=== PATIENT | male | born 1970 | race Caucasian/White ===

== ENCOUNTER 2019-01-19 20:13 | Inpatient (IN) | payer MEDICAID ==
[~2019-01-19] VITALS: Ht 182.9 cm; Wt 115.1 kg
[~2019-01-19 20:13] MED LIST: ASPI81TA45 PO; DOCU-131 PO; GABA-827 PO; INSU100I11 SQ-INSULIN; INSU100I13 SQ-INSULIN; LISI-170 PO; PANT40TA5 PO; SENN-177 PO
[2019-01-19] MEDS ORDERED: SODIUM CHLORIDE 0.9% 1,000 ML IV SCH (23:17)
[2019-01-19] MEDS ORDERED: VANCOMYCIN PER PHARMACY MC PRN (23:30)
[2019-01-19] MEDS ORDERED: PLEASE ENTER HEIGHT AND WEIGHT MC SCH (23:30)
[2019-01-19] MEDS ORDERED: hydrALAzine 20 MG/ML, 1ML IVPush PRN (23:30)
[2019-01-19 23:42] VITALS: BP 101/61
[2019-01-20] MEDS ORDERED: FURO-93 PO (00:03)
[2019-01-20] MEDS ORDERED: HYDR-3245 PO (00:07)
[2019-01-20] MEDS ORDERED: IBUP-1902 PO (00:08)
[2019-01-20] MEDS ORDERED: POTA10TA11 PO (00:13)
[2019-01-20] MEDS ORDERED: INSU200I SQ (00:20)
[2019-01-20] MEDS ORDERED: SIME80TA16 PO (00:23)
[2019-01-20] MEDS ORDERED: PHARMACOKINETIC MONITORING MC PRN (00:30)
[2019-01-20] MEDS: AMPICILLIN/SULBACTAM 3 GM in SODIUM CHLORIDE 0.9% 100 ML IV SCH ×4 (00:33→18:18)
[2019-01-20] MEDS: ENOXAPARIN 40 MG/0.4 ML SQ SCH (00:33)
[2019-01-20] MEDS: HYDROcodone/APAP 10/325 MG TABLET PO PRN ×4 (00:35→21:27)
[2019-01-20] MEDS ORDERED: LANS30CA60 PO (00:36)
[2019-01-20] MEDS ORDERED: BISA10SU54 PR (00:39)
[2019-01-20] MEDS ORDERED: PARO10TA3 PO (00:42)
[2019-01-20] MEDS ORDERED: MAGN400O7 PO (00:46)
[2019-01-20 00:48] VITALS: BP 110/63
[2019-01-20] MEDS ORDERED: VANCOMYCIN 2,000 MG in SODIUM CHLORIDE 0.9% 500 ML IV SCH (01:00)
[2019-01-20 05:45] LABS: BASOPHILS # (AUTO) 0.02 x10^3/uL (0-0.1); BASOPHILS % (AUTO) 0 % (0-1); EOSINOPHILS # (AUTO) 0.13 x10^3/uL (0-0.4); EOSINOPHILS % (AUTO) 1 % (1-7); LYMPHOCYTES % (AUTO) 10 % (22-44); MD NO; MEAN CORPUSCULAR HEMOGLOBIN 25.7 pg (27.5-34.5); MEAN CORPUSCULAR HGB CONC 31.9 g/dL (33.2-36.2); MEAN CORPUSCULAR VOLUME 80.3 fL (81-97); MEAN PLATELET VOLUME 6.9 fL (7.4-10.4); MONOCYTES # (AUTO) 0.72 x10^3/uL (0.2-0.8); MONOCYTES % (AUTO) 8 % (2-9); NEUTROPHILS % (AUTO) 80 % (42-75); PLATELET COUNT 408 x10^3/uL (130-400); RED BLOOD COUNT 3.38 x10^6/uL (4.38-5.82); RED CELL DISTRIBUTION WIDTH 17.3 % (9.4-14.8)
[2019-01-20 05:53] LABS: ALBUMIN 2.3 g/dL (3.4-5.0); ANION GAP 9 mmol/L (5-15); CALCIUM 8.3 mg/dL (8.5-10.1); CHLORIDE 100 mmol/L (98-107)
[2019-01-20 05:57] LABS: ALANINE AMINOTRANSFERASE 34 U/L (12-78); ALKALINE PHOSPHATASE 487 U/L (45-117); BILIRUBIN,TOTAL 0.7 mg/dL (0.2-1.0); CREATININE 0.64 mg/dL (0.7-1.3); TOTAL PROTEIN 7.2 g/dL (6.4-8.2)
[2019-01-20] MEDS: ASPIRIN 81 MG TABLET EC PO SCH (06:25)
[2019-01-20 06:38] LABS: HEMOGLOBIN A1C 8.8 % (4.2-6.3)
[2019-01-20] MEDS: PANTOPROZOLE 40MG TABLET PO SCH ×2 (07:30→11:33)
[2019-01-20 08:35] VITALS: BP 103/61
[2019-01-20] MEDS: VANCOMYCIN 2,000 MG in SODIUM CHLORIDE 0.9% 500 ML IV SCH ×2 (08:43→21:13)
[2019-01-20] MEDS: DOCUSATE 100 MG CAPSULE PO SCH ×2 (08:54→21:00)
[2019-01-20] MEDS: SENNA/DOCUSATE TABLET PO SCH (08:54)
[2019-01-20] MEDS: LISINOPRIL 20 MG TABLET PO SCH ×2 (08:54→11:33)
[2019-01-20] MEDS: GABAPENTIN 400 MG CAPSULE PO SCH ×4 (08:54→23:30)
[2019-01-20] MEDS: INSULIN LISPRO 100 UNITS/ML, PEN SQ-INSULIN SCH ×4 (09:30→22:07)
[2019-01-20 13:02] VITALS: BP 104/60
[2019-01-20 16:13] LABS: HCT (SEDRATE) 29.3 % (39.2-51.8)
[2019-01-20 16:20] VITALS: BP 98/57
[2019-01-20] MEDS ORDERED: SODIUM CHLORIDE 0.9%, 500ML IVBOLUS ONE (16:30)
[2019-01-20] MEDS: ACETAMINOPHEN 325 MG TABLET PO PRN (16:31)
[2019-01-20 17:35] VITALS: BP 119/66
[2019-01-20 18:47] VITALS: BP 107/65
[2019-01-20] MEDS ORDERED: FUROSEMIDE 20 MG/2 ML IV ONE (19:00)
[2019-01-20] MEDS ORDERED: ONDANSETRON 2MG/ML, 2ML IVPush PRN (20:00)
[2019-01-20] MEDS ORDERED: ONDANSETRON ODT 4 MG PO PRN (20:00)
[2019-01-20] MEDS: INSULIN GLARGINE 100 UNITS/ML, PEN SQ-INSULIN SCH (22:07)
[2019-01-21] MEDS: ENOXAPARIN 40 MG/0.4 ML SQ SCH
[2019-01-21] MEDS: AMPICILLIN/SULBACTAM 3 GM in SODIUM CHLORIDE 0.9% 100 ML IV SCH ×4 (00:17→19:59)
[2019-01-21 01:37] VITALS: BP 106/68
[2019-01-21] MEDS: HYDROcodone/APAP 10/325 MG TABLET PO PRN ×2 (04:47→22:32)
[2019-01-21] MEDS: ASPIRIN 81 MG TABLET EC PO SCH (06:00)
[2019-01-21 06:02] LABS: ALBUMIN 2.1 g/dL (3.4-5.0); ANION GAP 9 mmol/L (5-15); CALCIUM 8.4 mg/dL (8.5-10.1); CHLORIDE 101 mmol/L (98-107)
[2019-01-21 06:07] LABS: ALANINE AMINOTRANSFERASE 29 U/L (12-78); ALKALINE PHOSPHATASE 423 U/L (45-117); BILIRUBIN,TOTAL 0.6 mg/dL (0.2-1.0); CREATININE 0.67 mg/dL (0.7-1.3); TOTAL PROTEIN 7.4 g/dL (6.4-8.2)
[2019-01-21 06:13] LABS: BASOPHILS # (AUTO) 0.02 x10^3/uL (0-0.1); BASOPHILS % (AUTO) 0 % (0-1); EOSINOPHILS # (AUTO) 0.22 x10^3/uL (0-0.4); EOSINOPHILS % (AUTO) 2 % (1-7); LYMPHOCYTES # (AUTO) 1.17 x10^3/uL (1-3.4); LYMPHOCYTES % (AUTO) 11 % (22-44); MD NO; MEAN CORPUSCULAR HEMOGLOBIN 25.6 pg (27.5-34.5); MEAN CORPUSCULAR HGB CONC 31.9 g/dL (33.2-36.2); MEAN CORPUSCULAR VOLUME 80.3 fL (81-97); MEAN PLATELET VOLUME 6.7 fL (7.4-10.4); MONOCYTES # (AUTO) 0.58 x10^3/uL (0.2-0.8); MONOCYTES % (AUTO) 5 % (2-9); NEUTROPHILS # (AUTO) 8.85 x10^3/uL (1.8-6.8); NEUTROPHILS % (AUTO) 82 % (42-75); PLATELET COUNT 479 x10^3/uL (130-400); RED CELL DISTRIBUTION WIDTH 18.4 % (9.4-14.8)
[2019-01-21] MEDS: PANTOPROZOLE 40MG TABLET PO SCH ×2 (07:30→17:58)
[2019-01-21 07:58] VITALS: BP 115/67
[2019-01-21] MEDS: DOCUSATE 100 MG CAPSULE PO SCH ×2 (08:14→19:03)
[2019-01-21] MEDS: GABAPENTIN 400 MG CAPSULE PO SCH ×3 (08:14→17:57)
[2019-01-21] MEDS: SENNA/DOCUSATE TABLET PO SCH (08:15)
[2019-01-21] MEDS: LISINOPRIL 20 MG TABLET PO SCH (08:15)
[2019-01-21] MEDS: VANCOMYCIN 2,000 MG in SODIUM CHLORIDE 0.9% 500 ML IV SCH ×2 (08:38→20:00)
[2019-01-21] MEDS: INSULIN LISPRO 100 UNITS/ML, PEN SQ-INSULIN SCH ×4 (08:39→20:44)
[2019-01-21] MEDS: INSULIN GLARGINE 100 UNITS/ML, PEN SQ-INSULIN SCH ×2 (08:40→20:44)
[2019-01-21] MEDS ORDERED: FLUMAZENIL 0.1 MG/1 ML, 5ML ONE (10:09)
[2019-01-21] MEDS ORDERED: MIDAZOLAM 1 MG/ML, 5ML ONE (10:09)
[2019-01-21] MEDS ORDERED: NALOXONE 1 MG/ML, 2ML ONE (10:09)
[2019-01-21] MEDS ORDERED: FENTANYL PF 100 MCG/2ML ONE (10:09)
[2019-01-21] MEDS ORDERED: LIDOCAINE-MPF 1%, 5ML ONE ×2 (10:19→11:02)
[2019-01-21 12:57] VITALS: BP 106/64
[2019-01-21] MEDS ORDERED: FENTANYL PF 250 MCG/5ML ONE (16:24)
[2019-01-21] MEDS ORDERED: HYDROmorphone 2 MG/ML, 1ML IVPush PRN (17:00)
[2019-01-21] MEDS ORDERED: MORPHINE SULFATE 4 MG/ML, 1ML IVPush PRN (17:00)
[2019-01-21] MEDS ORDERED: FENTANYL PF 100 MCG/2ML IV PRN (17:00)
[2019-01-21 19:38] VITALS: BP 111/68
[2019-01-21 20:19] LABS: CULTURE INDICATED? YES; MICROSCOPIC INDICATED
[2019-01-22] MEDS: ENOXAPARIN 40 MG/0.4 ML SQ SCH (00:22)
[2019-01-22 01:32] VITALS: BP 121/70
[2019-01-22] MEDS: AMPICILLIN/SULBACTAM 3 GM in SODIUM CHLORIDE 0.9% 100 ML IV SCH ×4 (01:52→20:25)
[2019-01-22] MEDS: VANCOMYCIN 2,000 MG in SODIUM CHLORIDE 0.9% 500 ML IV SCH ×2 (02:31→21:08)
[2019-01-22] MEDS: ASPIRIN 81 MG TABLET EC PO SCH (05:12)
[2019-01-22] MEDS: HYDROcodone/APAP 10/325 MG TABLET PO PRN (05:12)
[2019-01-22] MEDS: INSULIN LISPRO 100 UNITS/ML, PEN SQ-INSULIN SCH ×4 (07:00→20:39)
[2019-01-22 08:40] VITALS: BP 105/62
[2019-01-22] MEDS: SENNA/DOCUSATE TABLET PO SCH (09:10)
[2019-01-22] MEDS: DOCUSATE 100 MG CAPSULE PO SCH ×2 (09:10→21:00)
[2019-01-22] MEDS: GABAPENTIN 400 MG CAPSULE PO SCH ×3 (09:10→21:44)
[2019-01-22] MEDS: LISINOPRIL 20 MG TABLET PO SCH (09:11)
[2019-01-22] MEDS: INSULIN GLARGINE 100 UNITS/ML, PEN SQ-INSULIN SCH ×2 (09:12→20:39)
[2019-01-22 13:19] VITALS: BP 120/73
[2019-01-22] MEDS: ACETAMINOPHEN 325 MG TABLET PO PRN (17:32)
[2019-01-22 19:30] VITALS: BP 104/65
[2019-01-22] MEDS ORDERED: OMNIPAQUE 350 MG/ML, 100ML BOTTLE ONE (20:30)
[2019-01-23] MEDS: ENOXAPARIN 40 MG/0.4 ML SQ SCH (00:33)
[2019-01-23 01:05] VITALS: BP 123/74
[2019-01-23] MEDS: AMPICILLIN/SULBACTAM 3 GM in SODIUM CHLORIDE 0.9% 100 ML IV SCH ×4 (01:55→20:00)
[2019-01-23] MEDS: ASPIRIN 81 MG TABLET EC PO SCH (04:55)
[2019-01-23] MEDS: HYDROcodone/APAP 10/325 MG TABLET PO PRN ×3 (04:56→20:18)
[2019-01-23 05:27] LABS: BASOPHILS # (AUTO) 0.11 x10^3/uL (0-0.1); BASOPHILS % (AUTO) 1 % (0-1); EOSINOPHILS # (AUTO) 0.23 x10^3/uL (0-0.4); EOSINOPHILS % (AUTO) 2 % (1-7); LYMPHOCYTES # (AUTO) 1.24 x10^3/uL (1-3.4); LYMPHOCYTES % (AUTO) 13 % (22-44); MD NO; MEAN CORPUSCULAR HEMOGLOBIN 25.5 pg (27.5-34.5); MEAN CORPUSCULAR VOLUME 79.7 fL (81-97); MEAN PLATELET VOLUME 6.6 fL (7.4-10.4); MONOCYTES # (AUTO) 0.69 x10^3/uL (0.2-0.8); MONOCYTES % (AUTO) 7 % (2-9); NEUTROPHILS # (AUTO) 7.52 x10^3/uL (1.8-6.8); NEUTROPHILS % (AUTO) 77 % (42-75); PLATELET COUNT 629 x10^3/uL (130-400); RED BLOOD COUNT 3.52 x10^6/uL (4.38-5.82); RED CELL DISTRIBUTION WIDTH 17.8 % (9.4-14.8)
[2019-01-23 05:29] LABS: HCT (SEDRATE) 28.1 % (39.2-51.8)
[2019-01-23 05:31] LABS: ANION GAP 7 mmol/L (5-15); CALCIUM 8.4 mg/dL (8.5-10.1); CHLORIDE 103 mmol/L (98-107)
[2019-01-23 05:39] LABS: CREATININE 0.48 mg/dL (0.7-1.3)
[2019-01-23] MEDS: INSULIN LISPRO 100 UNITS/ML, PEN SQ-INSULIN SCH ×4 (07:00→20:06)
[2019-01-23 07:36] VITALS: BP 119/73
[2019-01-23] MEDS: DOCUSATE 100 MG CAPSULE PO SCH ×2 (09:00→19:59)
[2019-01-23] MEDS: SENNA/DOCUSATE TABLET PO SCH (09:00)
[2019-01-23] MEDS: PANTOPROZOLE 40MG TABLET PO SCH (09:00)
[2019-01-23] MEDS: GABAPENTIN 400 MG CAPSULE PO SCH ×3 (09:00→20:00)
[2019-01-23] MEDS: LISINOPRIL 20 MG TABLET PO SCH (09:00)
[2019-01-23] MEDS: INSULIN GLARGINE 100 UNITS/ML, PEN SQ-INSULIN SCH ×2 (09:04→20:21)
[2019-01-23 14:01] VITALS: BP 129/77
[2019-01-23] MEDS: VANCOMYCIN 2,000 MG in SODIUM CHLORIDE 0.9% 500 ML IV SCH (15:07)
[2019-01-23 19:27] VITALS: BP 117/69
[2019-01-23] MEDS: SIMETHICONE 80 MG CHEW TAB PO PRN (20:18)
[2019-01-23] MEDS: FLUTICASONE NASAL SPRAY 16GM NAS PRN (23:40)
[2019-01-24] MEDS: HYDROcodone/APAP 10/325 MG TABLET PO PRN ×6 (00:24→23:36)
[2019-01-24] MEDS: ENOXAPARIN 40 MG/0.4 ML SQ SCH ×2 (00:24→23:27)
[2019-01-24] MEDS: AMPICILLIN/SULBACTAM 3 GM in SODIUM CHLORIDE 0.9% 100 ML IV SCH ×4 (02:15→20:42)
[2019-01-24 02:36] VITALS: BP 117/68
[2019-01-24] MEDS: ASPIRIN 81 MG TABLET EC PO SCH (04:37)
[2019-01-24 06:12] LABS: MEAN CORPUSCULAR HEMOGLOBIN 25.8 pg (27.5-34.5); MEAN CORPUSCULAR HGB CONC 32.1 g/dL (33.2-36.2); MEAN CORPUSCULAR VOLUME 80.6 fL (81-97); MEAN PLATELET VOLUME 6.6 fL (7.4-10.4); PLATELET COUNT 742 x10^3/uL (130-400); RED BLOOD COUNT 3.53 x10^6/uL (4.38-5.82); RED CELL DISTRIBUTION WIDTH 18.5 % (9.4-14.8)
[2019-01-24 06:27] LABS: ANION GAP 6 mmol/L (5-15); CALCIUM 8.7 mg/dL (8.5-10.1); CHLORIDE 101 mmol/L (98-107); CREATININE 0.42 mg/dL (0.7-1.3)
[2019-01-24] MEDS: INSULIN LISPRO 100 UNITS/ML, PEN SQ-INSULIN SCH ×4 (07:00→20:43)
[2019-01-24 07:43] LABS: MD YES
[2019-01-24 07:44] LABS: BAND#(MANUAL) 0.19 x10^3/uL; BANDS%(MANUAL) 2 % (0-7); EOS#(MANUAL) 0.19 x10^3/uL (0.0-0.4); EOS% (MANUAL) 2 % (1-7); LYMPH#(MANUAL) 2.04 x10^3/uL (1-3.4); LYMPHS% (MANUAL) 21 % (22-44); MONOS#(MANUAL) 0.58 x10^3/uL (0.3-2.7); MONOS% (MANUAL) 6 % (2-9); SEG#(MANUAL) 6.69 x10^3/uL (1.8-6.8); SEGS% (MANUAL) 69 % (42-75)
[2019-01-24 07:45] LABS: ANISOCYTOSIS 1+; POLYCHROMASIA 1+
[2019-01-24 07:46] LABS: <PLATELET ESTIMATE> INCREASED; <PLT MORPHOLOGY> NORMAL PLT MORPH
[2019-01-24 07:55] VITALS: BP 116/70
[2019-01-24] MEDS: SENNA/DOCUSATE TABLET PO SCH (09:00)
[2019-01-24] MEDS: DOCUSATE 100 MG CAPSULE PO SCH ×2 (09:00→20:43)
[2019-01-24] MEDS ORDERED: MULTIVITAMIN 1 TABLET PO SCH (09:00)
[2019-01-24] MEDS: GABAPENTIN 400 MG CAPSULE PO SCH ×3 (09:09→20:43)
[2019-01-24] MEDS: PANTOPROZOLE 40MG TABLET PO SCH (09:10)
[2019-01-24] MEDS: LISINOPRIL 20 MG TABLET PO SCH (09:10)
[2019-01-24] MEDS: MULTIVITAMINS WITH IRON TABLET PO SCH (09:10)
[2019-01-24] MEDS: INSULIN GLARGINE 100 UNITS/ML, PEN SQ-INSULIN SCH ×2 (09:11→20:44)
[2019-01-24] MEDS: VANCOMYCIN 2,000 MG in SODIUM CHLORIDE 0.9% 500 ML IV SCH (10:07)
[2019-01-24] MEDS: SIMETHICONE 80 MG CHEW TAB PO PRN ×2 (12:39→20:43)
[2019-01-24 13:55] VITALS: BP 138/75
[2019-01-24 20:27] VITALS: BP 132/74
[2019-01-24] MEDS: FLUTICASONE NASAL SPRAY 16GM NAS PRN (20:49)
[2019-01-24] MEDS: VANCOMYCIN 1,500 MG in SODIUM CHLORIDE 0.9% 250 ML IV SCH (22:07)
[2019-01-25 01:18] VITALS: BP 105/61
[2019-01-25] MEDS: AMPICILLIN/SULBACTAM 3 GM in SODIUM CHLORIDE 0.9% 100 ML IV SCH ×4 (02:21→20:55)
[2019-01-25] MEDS: HYDROcodone/APAP 10/325 MG TABLET PO PRN ×5 (03:35→22:28)
[2019-01-25] MEDS: ASPIRIN 81 MG TABLET EC PO SCH (04:55)
[2019-01-25] MEDS: INSULIN LISPRO 100 UNITS/ML, PEN SQ-INSULIN SCH ×4 (07:00→21:19)
[2019-01-25 07:47] VITALS: BP 129/74
[2019-01-25] MEDS: GABAPENTIN 400 MG CAPSULE PO SCH ×3 (08:37→20:55)
[2019-01-25] MEDS: MULTIVITAMINS WITH IRON TABLET PO SCH (08:37)
[2019-01-25] MEDS: PANTOPROZOLE 40MG TABLET PO SCH (08:37)
[2019-01-25] MEDS: FLUTICASONE NASAL SPRAY 16GM NAS PRN ×2 (08:38→20:55)
[2019-01-25] MEDS: LISINOPRIL 20 MG TABLET PO SCH (08:38)
[2019-01-25] MEDS: DOCUSATE 100 MG CAPSULE PO SCH ×2 (08:39→20:55)
[2019-01-25] MEDS: SENNA/DOCUSATE TABLET PO SCH (08:39)
[2019-01-25] MEDS: INSULIN GLARGINE 100 UNITS/ML, PEN SQ-INSULIN SCH ×2 (08:40→21:20)
[2019-01-25] MEDS: VANCOMYCIN 1,500 MG in SODIUM CHLORIDE 0.9% 250 ML IV SCH ×2 (10:50→22:28)
[2019-01-25] MEDS: SIMETHICONE 80 MG CHEW TAB PO PRN ×2 (11:17→19:46)
[2019-01-25 12:28] VITALS: BP 123/69
[2019-01-25 21:09] VITALS: BP 108/63
[2019-01-26 00:03] VITALS: BP 112/67
[2019-01-26] MEDS: ENOXAPARIN 40 MG/0.4 ML SQ SCH ×2 (00:05→22:50)
[2019-01-26] MEDS: HYDROcodone/APAP 10/325 MG TABLET PO PRN ×4 (02:23→20:25)
[2019-01-26] MEDS: AMPICILLIN/SULBACTAM 3 GM in SODIUM CHLORIDE 0.9% 100 ML IV SCH ×4 (02:32→21:30)
[2019-01-26] MEDS: ASPIRIN 81 MG TABLET EC PO SCH (05:30)
[2019-01-26] MEDS: SIMETHICONE 80 MG CHEW TAB PO PRN ×2 (06:22→20:33)
[2019-01-26] MEDS: INSULIN LISPRO 100 UNITS/ML, PEN SQ-INSULIN SCH ×4 (07:00→20:27)
[2019-01-26 07:12] VITALS: BP 111/71
[2019-01-26] MEDS: MULTIVITAMINS WITH IRON TABLET PO SCH (08:40)
[2019-01-26] MEDS: PANTOPROZOLE 40MG TABLET PO SCH (08:40)
[2019-01-26] MEDS: INSULIN GLARGINE 100 UNITS/ML, PEN SQ-INSULIN SCH ×2 (08:40→20:28)
[2019-01-26] MEDS: LISINOPRIL 20 MG TABLET PO SCH (08:41)
[2019-01-26] MEDS: FLUTICASONE NASAL SPRAY 16GM NAS PRN (08:41)
[2019-01-26] MEDS: GABAPENTIN 400 MG CAPSULE PO SCH ×3 (08:41→20:25)
[2019-01-26] MEDS: DOCUSATE 100 MG CAPSULE PO SCH ×2 (08:41→20:26)
[2019-01-26] MEDS: SENNA/DOCUSATE TABLET PO SCH (08:41)
[2019-01-26] MEDS: VANCOMYCIN 1,500 MG in SODIUM CHLORIDE 0.9% 250 ML IV SCH ×2 (10:47→22:50)
[2019-01-26 12:46] VITALS: BP 110/74
[2019-01-26] MEDS: MICAFUNGIN 100 MG in SODIUM CHLORIDE 0.9% 100 ML IV SCH (12:49)
[2019-01-26 13:12] VITALS: BP 133/73
[2019-01-26 18:55] VITALS: BP 128/64
[2019-01-26] MEDS ORDERED: IBUPROFEN 200 MG TABLET PO ONE (23:30)
[2019-01-27] MEDS: HYDROcodone/APAP 10/325 MG TABLET PO PRN ×5 (00:27→22:26)
[2019-01-27 01:10] VITALS: BP 109/61
[2019-01-27] MEDS: AMPICILLIN/SULBACTAM 3 GM in SODIUM CHLORIDE 0.9% 100 ML IV SCH ×4 (03:25→21:24)
[2019-01-27] MEDS: ASPIRIN 81 MG TABLET EC PO SCH (05:55)
[2019-01-27 07:09] VITALS: BP 103/62
[2019-01-27] MEDS: ACETAMINOPHEN 325 MG TABLET PO PRN (07:50)
[2019-01-27 08:15] LABS: ALBUMIN 2.4 g/dL (3.4-5.0); ANION GAP 6 mmol/L (5-15); CALCIUM 8.6 mg/dL (8.5-10.1); CHLORIDE 98 mmol/L (98-107)
[2019-01-27 08:19] LABS: ALANINE AMINOTRANSFERASE 11 U/L (12-78); ALKALINE PHOSPHATASE 255 U/L (45-117); BILIRUBIN,TOTAL 0.3 mg/dL (0.2-1.0); CREATININE 0.61 mg/dL (0.7-1.3)
[2019-01-27 08:25] LABS: BASOPHILS # (AUTO) 0.02 x10^3/uL (0-0.1); BASOPHILS % (AUTO) 0 % (0-1); EOSINOPHILS % (AUTO) 4 % (1-7); LYMPHOCYTES # (AUTO) 2.23 x10^3/uL (1-3.4); LYMPHOCYTES % (AUTO) 26 % (22-44); MD SCAN; MEAN CORPUSCULAR HEMOGLOBIN 25.3 pg (27.5-34.5); MEAN CORPUSCULAR HGB CONC 31.2 g/dL (33.2-36.2); MEAN CORPUSCULAR VOLUME 81.2 fL (81-97); MONOCYTES % (AUTO) 8 % (2-9); NEUTROPHILS # (AUTO) 5.31 x10^3/uL (1.8-6.8); NEUTROPHILS % (AUTO) 62 % (42-75); PLATELET COUNT 911 x10^3/uL (130-400)
[2019-01-27] MEDS: INSULIN LISPRO 100 UNITS/ML, PEN SQ-INSULIN SCH ×4 (09:34→20:44)
[2019-01-27] MEDS: PANTOPROZOLE 40MG TABLET PO SCH (09:35)
[2019-01-27] MEDS: MULTIVITAMINS WITH IRON TABLET PO SCH (09:35)
[2019-01-27] MEDS: SENNA/DOCUSATE TABLET PO SCH (09:35)
[2019-01-27] MEDS: INSULIN GLARGINE 100 UNITS/ML, PEN SQ-INSULIN SCH ×2 (09:35→20:44)
[2019-01-27] MEDS: GABAPENTIN 400 MG CAPSULE PO SCH ×3 (09:36→20:27)
[2019-01-27] MEDS: DOCUSATE 100 MG CAPSULE PO SCH ×2 (09:36→20:27)
[2019-01-27] MEDS: LISINOPRIL 20 MG TABLET PO SCH (09:36)
[2019-01-27] MEDS: FLUTICASONE NASAL SPRAY 16GM NAS PRN (09:39)
[2019-01-27] MEDS: VANCOMYCIN 1,500 MG in SODIUM CHLORIDE 0.9% 250 ML IV SCH ×2 (10:36→22:27)
[2019-01-27] MEDS: MICAFUNGIN 100 MG in SODIUM CHLORIDE 0.9% 100 ML IV SCH (11:58)
[2019-01-27] MEDS ORDERED: FUROSEMIDE 40 MG/4 ML IV ONE (14:30)
[2019-01-27 14:34] VITALS: BP 110/62
[2019-01-27] MEDS: FUROSEMIDE 20 MG TABLET PO SCH (18:21)
[2019-01-27 19:38] VITALS: BP 121/70
[2019-01-27] MEDS: ENOXAPARIN 40 MG/0.4 ML SQ SCH (22:27)
[2019-01-28 02:17] VITALS: BP 92/55
[2019-01-28] MEDS: AMPICILLIN/SULBACTAM 3 GM in SODIUM CHLORIDE 0.9% 100 ML IV SCH ×3 (03:24→18:23)
[2019-01-28] MEDS: HYDROcodone/APAP 10/325 MG TABLET PO PRN ×4 (03:28→21:35)
[2019-01-28] MEDS: ASPIRIN 81 MG TABLET EC PO SCH (05:13)
[2019-01-28 05:44] LABS: BASOPHILS # (AUTO) 0.06 x10^3/uL (0-0.1); BASOPHILS % (AUTO) 1 % (0-1); EOSINOPHILS # (AUTO) 0.32 x10^3/uL (0-0.4); EOSINOPHILS % (AUTO) 3 % (1-7); LYMPHOCYTES # (AUTO) 2.39 x10^3/uL (1-3.4); LYMPHOCYTES % (AUTO) 22 % (22-44); MD NO; MEAN CORPUSCULAR HEMOGLOBIN 26.2 pg (27.5-34.5); MEAN CORPUSCULAR VOLUME 81.8 fL (81-97); MEAN PLATELET VOLUME 6.6 fL (7.4-10.4); MONOCYTES # (AUTO) 0.91 x10^3/uL (0.2-0.8); MONOCYTES % (AUTO) 8 % (2-9); NEUTROPHILS # (AUTO) 7.45 x10^3/uL (1.8-6.8); NEUTROPHILS % (AUTO) 67 % (42-75); PLATELET COUNT 929 x10^3/uL (130-400); RED BLOOD COUNT 3.69 x10^6/uL (4.38-5.82)
[2019-01-28 05:48] LABS: ANION GAP 8 mmol/L (5-15); CHLORIDE 97 mmol/L (98-107)
[2019-01-28] MEDS: INSULIN LISPRO 100 UNITS/ML, PEN SQ-INSULIN SCH ×4 (07:00→21:12)
[2019-01-28 07:28] VITALS: BP 104/62
[2019-01-28] MEDS: INSULIN GLARGINE 100 UNITS/ML, PEN SQ-INSULIN SCH ×2 (07:38→21:13)
[2019-01-28] MEDS ORDERED: FUROSEMIDE 40 MG/4 ML IV ONE (09:00)
[2019-01-28] MEDS ORDERED: FUROSEMIDE 40 MG TABLET PO SCH (09:00)
[2019-01-28] MEDS: POTASSIUM CHLORIDE 20 MEQ TAB.ER.PRT PO SCH (09:15)
[2019-01-28] MEDS: SENNA/DOCUSATE TABLET PO SCH (09:15)
[2019-01-28] MEDS: DOCUSATE 100 MG CAPSULE PO SCH ×2 (09:15→21:12)
[2019-01-28] MEDS: PANTOPROZOLE 40MG TABLET PO SCH (09:15)
[2019-01-28] MEDS: LISINOPRIL 20 MG TABLET PO SCH (09:15)
[2019-01-28] MEDS: GABAPENTIN 400 MG CAPSULE PO SCH ×3 (09:15→21:12)
[2019-01-28] MEDS: MULTIVITAMINS WITH IRON TABLET PO SCH (09:15)
[2019-01-28] MEDS: VANCOMYCIN 1,500 MG in SODIUM CHLORIDE 0.9% 250 ML IV SCH ×2 (10:54→22:45)
[2019-01-28 15:14] VITALS: BP 108/61
[2019-01-28] MEDS: MICAFUNGIN 100 MG in SODIUM CHLORIDE 0.9% 100 ML IV SCH (15:53)
[2019-01-28] MEDS: FUROSEMIDE 20 MG TABLET PO SCH (16:00)
[2019-01-28 19:46] VITALS: BP 116/70
[2019-01-28] MEDS: SIMETHICONE 80 MG CHEW TAB PO PRN (21:48)
[2019-01-29] MEDS: AMPICILLIN/SULBACTAM 3 GM in SODIUM CHLORIDE 0.9% 100 ML IV SCH ×4 (00:47→17:38)
[2019-01-29] MEDS: ENOXAPARIN 40 MG/0.4 ML SQ SCH (00:47)
[2019-01-29 01:59] VITALS: BP 99/62
[2019-01-29 05:08] LABS: BASOPHILS # (AUTO) 0.07 x10^3/uL (0-0.1); BASOPHILS % (AUTO) 1 % (0-1); EOSINOPHILS # (AUTO) 0.32 x10^3/uL (0-0.4); EOSINOPHILS % (AUTO) 3 % (1-7); LYMPHOCYTES # (AUTO) 2.76 x10^3/uL (1-3.4); LYMPHOCYTES % (AUTO) 26 % (22-44); MD NO; MEAN CORPUSCULAR HEMOGLOBIN 25.8 pg (27.5-34.5); MEAN CORPUSCULAR HGB CONC 31.8 g/dL (33.2-36.2); MEAN CORPUSCULAR VOLUME 81.2 fL (81-97); MEAN PLATELET VOLUME 6.7 fL (7.4-10.4); MONOCYTES # (AUTO) 0.84 x10^3/uL (0.2-0.8); MONOCYTES % (AUTO) 8 % (2-9); NEUTROPHILS # (AUTO) 6.52 x10^3/uL (1.8-6.8); NEUTROPHILS % (AUTO) 62 % (42-75); PLATELET COUNT 863 x10^3/uL (130-400); RED BLOOD COUNT 3.69 x10^6/uL (4.38-5.82); RED CELL DISTRIBUTION WIDTH 18.7 % (9.4-14.8)
[2019-01-29 05:17] LABS: ANION GAP 6 mmol/L (5-15); CHLORIDE 98 mmol/L (98-107); CREATININE 0.57 mg/dL (0.7-1.3)
[2019-01-29] MEDS: ASPIRIN 325 MG TABLET EC PO SCH (06:07)
[2019-01-29 07:20] VITALS: BP 100/62
[2019-01-29] MEDS: LISINOPRIL 20 MG TABLET PO SCH (08:50)
[2019-01-29] MEDS: FUROSEMIDE 40 MG TABLET PO SCH (08:50)
[2019-01-29] MEDS: PANTOPROZOLE 40MG TABLET PO SCH (08:50)
[2019-01-29] MEDS: DOCUSATE 100 MG CAPSULE PO SCH ×2 (08:50→21:00)
[2019-01-29] MEDS: VANCOMYCIN 1,500 MG in SODIUM CHLORIDE 0.9% 250 ML IV SCH ×2 (08:50→22:55)
[2019-01-29] MEDS: POTASSIUM CHLORIDE 20 MEQ TAB.ER.PRT PO SCH (08:51)
[2019-01-29] MEDS: INSULIN LISPRO 100 UNITS/ML, PEN SQ-INSULIN SCH ×4 (08:52→21:05)
[2019-01-29] MEDS: HYDROcodone/APAP 10/325 MG TABLET PO PRN ×3 (08:55→21:44)
[2019-01-29] MEDS: GABAPENTIN 400 MG CAPSULE PO SCH ×3 (08:55→21:04)
[2019-01-29] MEDS: MULTIVITAMINS WITH IRON TABLET PO SCH (09:00)
[2019-01-29] MEDS: SENNA/DOCUSATE TABLET PO SCH (09:00)
[2019-01-29] MEDS: INSULIN GLARGINE 100 UNITS/ML, PEN SQ-INSULIN SCH ×2 (11:17→21:45)
[2019-01-29 12:50] VITALS: BP 103/62
[2019-01-29] MEDS: PAROXETINE 10 MG TABLET PO SCH (15:11)
[2019-01-29] MEDS: MICAFUNGIN 100 MG in SODIUM CHLORIDE 0.9% 100 ML IV SCH (16:02)
[2019-01-29] MEDS: FUROSEMIDE 20 MG TABLET PO SCH (17:40)
[2019-01-29 18:58] VITALS: BP 123/74
[2019-01-30] MEDS: ENOXAPARIN 40 MG/0.4 ML SQ SCH ×2 (00:03→22:57)
[2019-01-30] MEDS: AMPICILLIN/SULBACTAM 3 GM in SODIUM CHLORIDE 0.9% 100 ML IV SCH ×4 (00:03→18:37)
[2019-01-30 01:08] VITALS: BP 95/52
[2019-01-30] MEDS: HYDROcodone/APAP 10/325 MG TABLET PO PRN ×4 (04:31→20:29)
[2019-01-30 05:07] LABS: BASOPHILS # (AUTO) 0.04 x10^3/uL (0-0.1); BASOPHILS % (AUTO) 0 % (0-1); EOSINOPHILS # (AUTO) 0.28 x10^3/uL (0-0.4); EOSINOPHILS % (AUTO) 3 % (1-7); LYMPHOCYTES # (AUTO) 2.67 x10^3/uL (1-3.4); LYMPHOCYTES % (AUTO) 27 % (22-44); MD NO; MEAN CORPUSCULAR HEMOGLOBIN 26.2 pg (27.5-34.5); MEAN CORPUSCULAR HGB CONC 31.9 g/dL (33.2-36.2); MEAN PLATELET VOLUME 6.4 fL (7.4-10.4); MONOCYTES # (AUTO) 1.11 x10^3/uL (0.2-0.8); MONOCYTES % (AUTO) 11 % (2-9); NEUTROPHILS # (AUTO) 5.89 x10^3/uL (1.8-6.8); NEUTROPHILS % (AUTO) 59 % (42-75); PLATELET COUNT 836 x10^3/uL (130-400); RED BLOOD COUNT 3.58 x10^6/uL (4.38-5.82); RED CELL DISTRIBUTION WIDTH 18.7 % (9.4-14.8)
[2019-01-30 05:20] LABS: CHLORIDE 99 mmol/L (98-107)
[2019-01-30 05:25] LABS: ALANINE AMINOTRANSFERASE 13 U/L (12-78); ALBUMIN 2.5 g/dL (3.4-5.0); ALKALINE PHOSPHATASE 184 U/L (45-117); ANION GAP 6 mmol/L (5-15); BILIRUBIN,TOTAL 0.3 mg/dL (0.2-1.0); CALCIUM 8.9 mg/dL (8.5-10.1); CREATININE 0.67 mg/dL (0.7-1.3); TOTAL PROTEIN 8.1 g/dL (6.4-8.2)
[2019-01-30] MEDS: ASPIRIN 325 MG TABLET EC PO SCH (05:26)
[2019-01-30] MEDS: DOCUSATE 100 MG CAPSULE PO SCH ×2 (08:35→19:55)
[2019-01-30] MEDS: PAROXETINE 10 MG TABLET PO SCH (08:36)
[2019-01-30] MEDS: MULTIVITAMINS WITH IRON TABLET PO SCH (08:36)
[2019-01-30] MEDS: GABAPENTIN 400 MG CAPSULE PO SCH ×3 (08:37→19:54)
[2019-01-30] MEDS: POTASSIUM CHLORIDE 20 MEQ TAB.ER.PRT PO SCH (08:37)
[2019-01-30] MEDS: LISINOPRIL 20 MG TABLET PO SCH (08:37)
[2019-01-30] MEDS: INSULIN GLARGINE 100 UNITS/ML, PEN SQ-INSULIN SCH ×2 (08:38→19:55)
[2019-01-30] MEDS: PANTOPROZOLE 40MG TABLET PO SCH (08:38)
[2019-01-30] MEDS: FUROSEMIDE 40 MG TABLET PO SCH (08:38)
[2019-01-30] MEDS: SENNA/DOCUSATE TABLET PO SCH (08:39)
[2019-01-30 08:44] VITALS: BP 106/65
[2019-01-30] MEDS: INSULIN LISPRO 100 UNITS/ML, PEN SQ-INSULIN SCH ×5 (10:02→19:54)
[2019-01-30] MEDS: VANCOMYCIN 1,500 MG in SODIUM CHLORIDE 0.9% 250 ML IV SCH ×2 (11:49→22:57)
[2019-01-30 14:27] VITALS: BP 104/62
[2019-01-30] MEDS: MICAFUNGIN 100 MG in SODIUM CHLORIDE 0.9% 100 ML IV SCH (14:34)
[2019-01-30] MEDS ORDERED: INSULIN LISPRO 100 UNITS/ML, PEN SQ-INSULIN SCH (16:00)
[2019-01-30] MEDS: FUROSEMIDE 20 MG TABLET PO SCH (16:12)
[2019-01-30 18:48] VITALS: BP 125/72
[2019-01-31] MEDS: HYDROcodone/APAP 10/325 MG TABLET PO PRN ×6 (00:42→22:46)
[2019-01-31] MEDS: AMPICILLIN/SULBACTAM 3 GM in SODIUM CHLORIDE 0.9% 100 ML IV SCH ×4 (01:10→20:37)
[2019-01-31 01:55] VITALS: BP 104/62
[2019-01-31] MEDS: ASPIRIN 325 MG TABLET EC PO SCH (06:02)
[2019-01-31 07:13] VITALS: BP 102/63
[2019-01-31] MEDS: PANTOPROZOLE 40MG TABLET PO SCH (08:25)
[2019-01-31] MEDS: POTASSIUM CHLORIDE 20 MEQ TAB.ER.PRT PO SCH (08:25)
[2019-01-31] MEDS: MULTIVITAMINS WITH IRON TABLET PO SCH (08:25)
[2019-01-31] MEDS: PAROXETINE 10 MG TABLET PO SCH (08:25)
[2019-01-31] MEDS: FUROSEMIDE 40 MG TABLET PO SCH (08:26)
[2019-01-31] MEDS: GABAPENTIN 400 MG CAPSULE PO SCH ×3 (08:26→20:39)
[2019-01-31] MEDS: LISINOPRIL 20 MG TABLET PO SCH (08:27)
[2019-01-31] MEDS: INSULIN GLARGINE 100 UNITS/ML, PEN SQ-INSULIN SCH ×2 (08:29→20:37)
[2019-01-31] MEDS: INSULIN LISPRO 100 UNITS/ML, PEN SQ-INSULIN SCH ×5 (08:30→17:05)
[2019-01-31] MEDS: SENNA/DOCUSATE TABLET PO SCH (09:00)
[2019-01-31] MEDS: DOCUSATE 100 MG CAPSULE PO SCH ×2 (09:00→20:38)
[2019-01-31] MEDS ORDERED: INSULIN LISPRO 100 UNITS/ML, PEN SQ-INSULIN SCH ×2 (11:00→16:00)
[2019-01-31] MEDS: VANCOMYCIN 1,500 MG in SODIUM CHLORIDE 0.9% 250 ML IV SCH ×2 (11:43→22:46)
[2019-01-31 12:52] VITALS: BP 96/60
[2019-01-31] MEDS: MICAFUNGIN 100 MG in SODIUM CHLORIDE 0.9% 100 ML IV SCH (14:50)
[2019-01-31] MEDS: FUROSEMIDE 20 MG TABLET PO SCH (17:06)
[2019-01-31 19:22] VITALS: BP 96/58
[2019-01-31] MEDS: ENOXAPARIN 40 MG/0.4 ML SQ SCH (20:38)
[2019-01-31] MEDS: SIMETHICONE 80 MG CHEW TAB PO PRN (23:13)
[2019-02-01 00:17] VITALS: BP 92/54
[2019-02-01] MEDS: AMPICILLIN/SULBACTAM 3 GM in SODIUM CHLORIDE 0.9% 100 ML IV SCH ×4 (02:06→20:01)
[2019-02-01] MEDS: HYDROcodone/APAP 10/325 MG TABLET PO PRN ×4 (04:05→20:01)
[2019-02-01] MEDS: ASPIRIN 325 MG TABLET EC PO SCH (05:18)
[2019-02-01] MEDS: POTASSIUM CHLORIDE 20 MEQ TAB.ER.PRT PO SCH (07:30)
[2019-02-01] MEDS: INSULIN LISPRO 100 UNITS/ML, PEN SQ-INSULIN SCH ×3 (07:30→16:58)
[2019-02-01] MEDS: PANTOPROZOLE 40MG TABLET PO SCH (07:30)
[2019-02-01 07:51] VITALS: BP 135/68
[2019-02-01] MEDS: DOCUSATE 100 MG CAPSULE PO SCH ×2 (08:21→20:01)
[2019-02-01] MEDS: SENNA/DOCUSATE TABLET PO SCH (08:21)
[2019-02-01] MEDS: GABAPENTIN 400 MG CAPSULE PO SCH ×3 (08:28→20:01)
[2019-02-01] MEDS: LISINOPRIL 20 MG TABLET PO SCH (08:28)
[2019-02-01] MEDS: MULTIVITAMINS WITH IRON TABLET PO SCH (08:28)
[2019-02-01] MEDS: PAROXETINE 10 MG TABLET PO SCH (08:28)
[2019-02-01] MEDS: INSULIN GLARGINE 100 UNITS/ML, PEN SQ-INSULIN SCH ×2 (08:30→20:01)
[2019-02-01] MEDS: FUROSEMIDE 40 MG TABLET PO SCH (09:00)
[2019-02-01] MEDS: VANCOMYCIN 1,500 MG in SODIUM CHLORIDE 0.9% 250 ML IV SCH ×2 (11:04→23:28)
[2019-02-01] MEDS: OxyconTIN ER 10 MG TAB.ER PO SCH ×2 (12:09→23:54)
[2019-02-01 13:22] VITALS: BP 108/57
[2019-02-01] MEDS: MICAFUNGIN 100 MG in SODIUM CHLORIDE 0.9% 100 ML IV SCH (14:20)
[2019-02-01] MEDS: FUROSEMIDE 20 MG TABLET PO SCH (16:58)
[2019-02-01 18:51] VITALS: BP 94/56
[2019-02-01] MEDS: ENOXAPARIN 40 MG/0.4 ML SQ SCH (23:54)
[2019-02-02] MEDS: AMPICILLIN/SULBACTAM 3 GM in SODIUM CHLORIDE 0.9% 100 ML IV SCH ×4 (01:09→21:54)
[2019-02-02 01:30] VITALS: BP 111/68
[2019-02-02] MEDS: HYDROcodone/APAP 10/325 MG TABLET PO PRN ×4 (04:08→23:18)
[2019-02-02 05:48] LABS: BASOPHILS # (AUTO) 0.13 x10^3/uL (0-0.1); BASOPHILS % (AUTO) 2 % (0-1); EOSINOPHILS # (AUTO) 0.32 x10^3/uL (0-0.4); EOSINOPHILS % (AUTO) 4 % (1-7); LYMPHOCYTES # (AUTO) 2.36 x10^3/uL (1-3.4); LYMPHOCYTES % (AUTO) 29 % (22-44); MD NO; MEAN CORPUSCULAR HGB CONC 31.6 g/dL (33.2-36.2); MEAN CORPUSCULAR VOLUME 82.1 fL (81-97); MEAN PLATELET VOLUME 6.6 fL (7.4-10.4); MONOCYTES # (AUTO) 0.78 x10^3/uL (0.2-0.8); MONOCYTES % (AUTO) 10 % (2-9); NEUTROPHILS # (AUTO) 4.44 x10^3/uL (1.8-6.8); NEUTROPHILS % (AUTO) 55 % (42-75); PLATELET COUNT 785 x10^3/uL (130-400); RED BLOOD COUNT 3.63 x10^6/uL (4.38-5.82); RED CELL DISTRIBUTION WIDTH 18.3 % (9.4-14.8)
[2019-02-02 05:57] LABS: ALBUMIN 2.6 g/dL (3.4-5.0); ANION GAP 7 mmol/L (5-15); CALCIUM 8.9 mg/dL (8.5-10.1); CHLORIDE 96 mmol/L (98-107)
[2019-02-02] MEDS: ASPIRIN 325 MG TABLET EC PO SCH (05:57)
[2019-02-02 06:01] LABS: ALANINE AMINOTRANSFERASE 17 U/L (12-78); ALKALINE PHOSPHATASE 193 U/L (45-117); BILIRUBIN,TOTAL 0.3 mg/dL (0.2-1.0); TOTAL PROTEIN 8.4 g/dL (6.4-8.2)
[2019-02-02 07:17] VITALS: BP 118/68
[2019-02-02] MEDS: INSULIN LISPRO 100 UNITS/ML, PEN SQ-INSULIN SCH ×3 (07:53→17:14)
[2019-02-02] MEDS: SENNA/DOCUSATE TABLET PO SCH (09:00)
[2019-02-02] MEDS: MULTIVITAMINS WITH IRON TABLET PO SCH (10:06)
[2019-02-02] MEDS: INSULIN GLARGINE 100 UNITS/ML, PEN SQ-INSULIN SCH ×2 (10:06→21:54)
[2019-02-02] MEDS: GABAPENTIN 400 MG CAPSULE PO SCH ×3 (10:06→21:54)
[2019-02-02] MEDS: PANTOPROZOLE 40MG TABLET PO SCH (10:07)
[2019-02-02] MEDS: DOCUSATE 100 MG CAPSULE PO SCH ×2 (10:07→21:54)
[2019-02-02] MEDS: PAROXETINE 10 MG TABLET PO SCH (10:07)
[2019-02-02] MEDS: POTASSIUM CHLORIDE 20 MEQ TAB.ER.PRT PO SCH (10:07)
[2019-02-02] MEDS: FUROSEMIDE 40 MG TABLET PO SCH (10:07)
[2019-02-02] MEDS: LISINOPRIL 20 MG TABLET PO SCH (10:08)
[2019-02-02] MEDS: SIMETHICONE 80 MG CHEW TAB PO PRN ×2 (10:15→22:27)
[2019-02-02] MEDS: OxyconTIN ER 10 MG TAB.ER PO SCH ×2 (11:43→23:54)
[2019-02-02] MEDS: VANCOMYCIN 1,500 MG in SODIUM CHLORIDE 0.9% 250 ML IV SCH ×2 (11:43→23:54)
[2019-02-02 13:32] VITALS: BP 106/63
[2019-02-02] MEDS: MICAFUNGIN 100 MG in SODIUM CHLORIDE 0.9% 100 ML IV SCH (15:55)
[2019-02-02] MEDS: FUROSEMIDE 20 MG TABLET PO SCH (17:13)
[2019-02-02 18:47] VITALS: BP 82/52
[2019-02-02] MEDS ORDERED: SODIUM CHLORIDE 0.9% 500 ML IV STA (18:53)
[2019-02-02 19:20] VITALS: BP 96/59
[2019-02-02] MEDS ORDERED: SODIUM CHLORIDE 0.9% 500 ML IV ONE (19:30)
[2019-02-02] MEDS: ENOXAPARIN 40 MG/0.4 ML SQ SCH (23:54)
[2019-02-03 01:50] VITALS: BP 96/52
[2019-02-03] MEDS: AMPICILLIN/SULBACTAM 3 GM in SODIUM CHLORIDE 0.9% 100 ML IV SCH ×4 (03:48→21:30)
[2019-02-03] MEDS: ASPIRIN 325 MG TABLET EC PO SCH (05:40)
[2019-02-03 05:52] LABS: BASOPHILS # (AUTO) 0.11 x10^3/uL (0-0.1); BASOPHILS % (AUTO) 1 % (0-1); EOSINOPHILS # (AUTO) 0.31 x10^3/uL (0-0.4); EOSINOPHILS % (AUTO) 4 % (1-7); LYMPHOCYTES # (AUTO) 2.06 x10^3/uL (1-3.4); LYMPHOCYTES % (AUTO) 25 % (22-44); MD NO; MEAN CORPUSCULAR HGB CONC 31.7 g/dL (33.2-36.2); MEAN PLATELET VOLUME 6.5 fL (7.4-10.4); MONOCYTES # (AUTO) 0.88 x10^3/uL (0.2-0.8); MONOCYTES % (AUTO) 11 % (2-9); NEUTROPHILS # (AUTO) 5.02 x10^3/uL (1.8-6.8); NEUTROPHILS % (AUTO) 60 % (42-75); PLATELET COUNT 806 x10^3/uL (130-400); RED BLOOD COUNT 3.75 x10^6/uL (4.38-5.82)
[2019-02-03 06:06] LABS: ANION GAP 7 mmol/L (5-15); CHLORIDE 99 mmol/L (98-107)
[2019-02-03] MEDS: INSULIN LISPRO 100 UNITS/ML, PEN SQ-INSULIN SCH ×3 (07:00→16:00)
[2019-02-03 07:47] VITALS: BP 118/65
[2019-02-03] MEDS: FLUTICASONE NASAL SPRAY 16GM NAS PRN (08:41)
[2019-02-03] MEDS: INSULIN GLARGINE 100 UNITS/ML, PEN SQ-INSULIN SCH ×2 (08:45→20:00)
[2019-02-03] MEDS: POTASSIUM CHLORIDE 20 MEQ TAB.ER.PRT PO SCH (08:48)
[2019-02-03] MEDS: PAROXETINE 10 MG TABLET PO SCH (08:48)
[2019-02-03] MEDS: DOCUSATE 100 MG CAPSULE PO SCH ×2 (08:49→19:50)
[2019-02-03] MEDS: GABAPENTIN 400 MG CAPSULE PO SCH ×3 (08:49→19:50)
[2019-02-03] MEDS: HYDROcodone/APAP 10/325 MG TABLET PO PRN ×3 (08:49→21:12)
[2019-02-03] MEDS: MULTIVITAMINS WITH IRON TABLET PO SCH (08:49)
[2019-02-03] MEDS: PANTOPROZOLE 40MG TABLET PO SCH (08:50)
[2019-02-03] MEDS: SENNA/DOCUSATE TABLET PO SCH (08:50)
[2019-02-03] MEDS: LISINOPRIL 20 MG TABLET PO SCH (08:51)
[2019-02-03] MEDS: VANCOMYCIN 1,500 MG in SODIUM CHLORIDE 0.9% 250 ML IV SCH ×2 (11:10→23:40)
[2019-02-03] MEDS: OxyconTIN ER 10 MG TAB.ER PO SCH ×2 (12:16→23:40)
[2019-02-03 13:21] VITALS: BP 98/59
[2019-02-03] MEDS: MICAFUNGIN 100 MG in SODIUM CHLORIDE 0.9% 100 ML IV SCH (14:05)
[2019-02-03 19:35] VITALS: BP 106/61
[2019-02-03] MEDS: ENOXAPARIN 40 MG/0.4 ML SQ SCH (23:40)
[2019-02-04 01:45] VITALS: BP 97/58
[2019-02-04] MEDS: HYDROcodone/APAP 10/325 MG TABLET PO PRN ×3 (03:56→17:52)
[2019-02-04] MEDS: AMPICILLIN/SULBACTAM 3 GM in SODIUM CHLORIDE 0.9% 100 ML IV SCH ×4 (03:57→22:14)
[2019-02-04] MEDS: ASPIRIN 325 MG TABLET EC PO SCH (05:29)
[2019-02-04 07:00] VITALS: BP 100/62
[2019-02-04] MEDS: INSULIN LISPRO 100 UNITS/ML, PEN SQ-INSULIN SCH ×3 (07:00→16:49)
[2019-02-04] MEDS: SENNA/DOCUSATE TABLET PO SCH (08:08)
[2019-02-04] MEDS: DOCUSATE 100 MG CAPSULE PO SCH ×2 (08:09→20:28)
[2019-02-04] MEDS: INSULIN GLARGINE 100 UNITS/ML, PEN SQ-INSULIN SCH ×3 (09:00→20:27)
[2019-02-04] MEDS: PAROXETINE 10 MG TABLET PO SCH (09:28)
[2019-02-04] MEDS: POTASSIUM CHLORIDE 20 MEQ TAB.ER.PRT PO SCH (09:28)
[2019-02-04] MEDS: MULTIVITAMINS WITH IRON TABLET PO SCH (09:28)
[2019-02-04] MEDS: LISINOPRIL 20 MG TABLET PO SCH (09:28)
[2019-02-04] MEDS: PANTOPROZOLE 40MG TABLET PO SCH (09:28)
[2019-02-04] MEDS: GABAPENTIN 400 MG CAPSULE PO SCH ×3 (09:28→20:27)
[2019-02-04] MEDS ORDERED: GLUCAGON 1 MG IM PRN (10:30)
[2019-02-04] MEDS ORDERED: DEXTROSE 4 GM TAB.CHEW PO PRN (10:30)
[2019-02-04] MEDS ORDERED: DEXTROSE 50%, 50ML SYRINGE IVPush PRN (10:30)
[2019-02-04] MEDS: FUROSEMIDE 20 MG TABLET PO SCH (11:01)
[2019-02-04] MEDS: VANCOMYCIN 1,500 MG in SODIUM CHLORIDE 0.9% 250 ML IV SCH (11:30)
[2019-02-04] MEDS: OxyconTIN ER 10 MG TAB.ER PO SCH (12:22)
[2019-02-04 12:41] VITALS: BP 113/66
[2019-02-04] MEDS: MICAFUNGIN 100 MG in SODIUM CHLORIDE 0.9% 100 ML IV SCH (14:18)
[2019-02-04] MEDS: VANCOMYCIN 1,800 MG in SODIUM CHLORIDE 0.9% 250 ML IV SCH (17:52)
[2019-02-04 18:50] VITALS: BP 92/52
[2019-02-04] MEDS: SODIUM CHLORIDE FLUSH 10ML SYR IVF SCH (20:28)
[2019-02-05] MEDS: OxyconTIN ER 10 MG TAB.ER PO SCH ×3 (00:04→23:59)
[2019-02-05] MEDS: ENOXAPARIN 40 MG/0.4 ML SQ SCH ×2 (00:04→23:59)
[2019-02-05 03:44] VITALS: BP 94/56
[2019-02-05] MEDS: AMPICILLIN/SULBACTAM 3 GM in SODIUM CHLORIDE 0.9% 100 ML IV SCH ×4 (03:50→23:30)
[2019-02-05] MEDS: HYDROcodone/APAP 10/325 MG TABLET PO PRN ×3 (03:50→17:16)
[2019-02-05] MEDS: ASPIRIN 325 MG TABLET EC PO SCH (05:43)
[2019-02-05 06:46] VITALS: BP 97/59
[2019-02-05] MEDS: INSULIN LISPRO 100 UNITS/ML, PEN SQ-INSULIN SCH ×3 (07:00→17:16)
[2019-02-05] MEDS: GABAPENTIN 400 MG CAPSULE PO SCH ×3 (08:27→20:18)
[2019-02-05] MEDS: MULTIVITAMINS WITH IRON TABLET PO SCH (08:27)
[2019-02-05] MEDS: LISINOPRIL 20 MG TABLET PO SCH (08:27)
[2019-02-05] MEDS: DOCUSATE 100 MG CAPSULE PO SCH ×2 (08:27→20:19)
[2019-02-05] MEDS: INSULIN GLARGINE 100 UNITS/ML, PEN SQ-INSULIN SCH ×2 (08:27→20:19)
[2019-02-05] MEDS: PANTOPROZOLE 40MG TABLET PO SCH (08:28)
[2019-02-05] MEDS: PAROXETINE 10 MG TABLET PO SCH (08:28)
[2019-02-05] MEDS: SENNA/DOCUSATE TABLET PO SCH (08:28)
[2019-02-05] MEDS: FUROSEMIDE 20 MG TABLET PO SCH (08:28)
[2019-02-05] MEDS: POTASSIUM CHLORIDE 20 MEQ TAB.ER.PRT PO SCH (08:28)
[2019-02-05] MEDS: SODIUM CHLORIDE FLUSH 10ML SYR IVF SCH ×2 (09:00→20:19)
[2019-02-05] MEDS: VANCOMYCIN 1,800 MG in SODIUM CHLORIDE 0.9% 250 ML IV SCH (12:01)
[2019-02-05 13:21] VITALS: BP 109/62
[2019-02-05] MEDS: MICAFUNGIN 100 MG in SODIUM CHLORIDE 0.9% 100 ML IV SCH (14:29)
[2019-02-05 19:50] VITALS: BP 96/56
[2019-02-06 01:07] VITALS: BP 107/62
[2019-02-06] MEDS: HYDROcodone/APAP 10/325 MG TABLET PO PRN ×4 (03:35→21:39)
[2019-02-06] MEDS: FLUTICASONE NASAL SPRAY 16GM NAS PRN (03:41)
[2019-02-06] MEDS: VANCOMYCIN 1,800 MG in SODIUM CHLORIDE 0.9% 250 ML IV SCH ×2 (05:53→23:07)
[2019-02-06] MEDS: ASPIRIN 325 MG TABLET EC PO SCH (05:53)
[2019-02-06 06:08] LABS: CHLORIDE 97 mmol/L (98-107)
[2019-02-06 06:27] LABS: ALANINE AMINOTRANSFERASE 18 U/L (12-78); ALBUMIN 2.5 g/dL (3.4-5.0); ALKALINE PHOSPHATASE 172 U/L (45-117); ANION GAP 5 mmol/L (5-15); BILIRUBIN,TOTAL 0.2 mg/dL (0.2-1.0); CALCIUM 8.8 mg/dL (8.5-10.1); CREATININE 0.76 mg/dL (0.7-1.3)
[2019-02-06 08:27] VITALS: BP 127/72
[2019-02-06] MEDS: DOCUSATE 100 MG CAPSULE PO SCH ×2 (08:30→21:40)
[2019-02-06] MEDS: SENNA/DOCUSATE TABLET PO SCH (08:30)
[2019-02-06] MEDS: INSULIN GLARGINE 100 UNITS/ML, PEN SQ-INSULIN SCH ×2 (08:46→21:40)
[2019-02-06] MEDS: AMPICILLIN/SULBACTAM 3 GM in SODIUM CHLORIDE 0.9% 100 ML IV SCH ×3 (08:46→21:38)
[2019-02-06] MEDS: INSULIN LISPRO 100 UNITS/ML, PEN SQ-INSULIN SCH ×3 (08:46→17:12)
[2019-02-06] MEDS: POTASSIUM CHLORIDE 20 MEQ TAB.ER.PRT PO SCH (08:47)
[2019-02-06] MEDS: PANTOPROZOLE 40MG TABLET PO SCH (08:47)
[2019-02-06] MEDS: LISINOPRIL 20 MG TABLET PO SCH (08:48)
[2019-02-06] MEDS: PAROXETINE 10 MG TABLET PO SCH (08:48)
[2019-02-06] MEDS: FUROSEMIDE 20 MG TABLET PO SCH (08:48)
[2019-02-06] MEDS: SODIUM CHLORIDE FLUSH 10ML SYR IVF SCH ×2 (08:48→21:40)
[2019-02-06] MEDS: MULTIVITAMINS WITH IRON TABLET PO SCH (08:48)
[2019-02-06] MEDS: GABAPENTIN 400 MG CAPSULE PO SCH ×3 (09:33→21:39)
[2019-02-06] MEDS: OxyconTIN ER 10 MG TAB.ER PO SCH (11:38)
[2019-02-06 13:41] VITALS: BP 102/58
[2019-02-06 17:04] LABS: BASOPHILS # (AUTO) 0.09 x10^3/uL (0-0.1); BASOPHILS % (AUTO) 1 % (0-1); EOSINOPHILS # (AUTO) 0.38 x10^3/uL (0-0.4); EOSINOPHILS % (AUTO) 5 % (1-7); LYMPHOCYTES # (AUTO) 2.03 x10^3/uL (1-3.4); LYMPHOCYTES % (AUTO) 27 % (22-44); MD NO; MEAN CORPUSCULAR HEMOGLOBIN 25.2 pg (27.5-34.5); MEAN CORPUSCULAR HGB CONC 31.7 g/dL (33.2-36.2); MEAN CORPUSCULAR VOLUME 79.6 fL (81-97); MEAN PLATELET VOLUME 6.3 fL (7.4-10.4); MONOCYTES # (AUTO) 0.87 x10^3/uL (0.2-0.8); MONOCYTES % (AUTO) 12 % (2-9); NEUTROPHILS # (AUTO) 4.13 x10^3/uL (1.8-6.8); NEUTROPHILS % (AUTO) 55 % (42-75); PLATELET COUNT 613 x10^3/uL (130-400); RED BLOOD COUNT 3.68 x10^6/uL (4.38-5.82); RED CELL DISTRIBUTION WIDTH 18.5 % (9.4-14.8)
[2019-02-06 19:02] VITALS: BP 92/54
[2019-02-07] MEDS: OxyconTIN ER 10 MG TAB.ER PO SCH ×2 (00:04→13:14)
[2019-02-07] MEDS: ENOXAPARIN 40 MG/0.4 ML SQ SCH (00:05)
[2019-02-07 01:20] VITALS: BP 104/64
[2019-02-07] MEDS: AMPICILLIN/SULBACTAM 3 GM in SODIUM CHLORIDE 0.9% 100 ML IV SCH ×4 (03:25→21:44)
[2019-02-07] MEDS: ASPIRIN 325 MG TABLET EC PO SCH (05:45)
[2019-02-07] MEDS: HYDROcodone/APAP 10/325 MG TABLET PO PRN ×4 (05:45→19:24)
[2019-02-07] MEDS: DOCUSATE 100 MG CAPSULE PO SCH ×2 (08:00→21:43)
[2019-02-07] MEDS: SENNA/DOCUSATE TABLET PO SCH (08:00)
[2019-02-07] MEDS: MULTIVITAMINS WITH IRON TABLET PO SCH (08:08)
[2019-02-07] MEDS: GABAPENTIN 400 MG CAPSULE PO SCH ×3 (08:08→21:43)
[2019-02-07] MEDS: PAROXETINE 10 MG TABLET PO SCH (08:09)
[2019-02-07] MEDS: FUROSEMIDE 20 MG TABLET PO SCH (08:09)
[2019-02-07] MEDS: POTASSIUM CHLORIDE 20 MEQ TAB.ER.PRT PO SCH (08:09)
[2019-02-07] MEDS: PANTOPROZOLE 40MG TABLET PO SCH (08:09)
[2019-02-07] MEDS: SODIUM CHLORIDE FLUSH 10ML SYR IVF SCH ×2 (08:10→21:44)
[2019-02-07 08:12] VITALS: BP 97/60
[2019-02-07] MEDS: INSULIN LISPRO 100 UNITS/ML, PEN SQ-INSULIN SCH ×3 (08:12→16:30)
[2019-02-07] MEDS: LISINOPRIL 10 MG TABLET PO SCH (08:12)
[2019-02-07] MEDS ORDERED: INSULIN GLARGINE 100 UNITS/ML, PEN SQ-INSULIN SCH ×2 (09:00→21:00)
[2019-02-07 13:15] VITALS: BP 111/65
[2019-02-07] MEDS: VANCOMYCIN 1,800 MG in SODIUM CHLORIDE 0.9% 250 ML IV SCH (16:30)
[2019-02-07 19:46] VITALS: BP 129/78
[2019-02-08 01:05] VITALS: BP 137/68
[2019-02-08] MEDS: OxyconTIN ER 10 MG TAB.ER PO SCH ×2 (01:06→12:00)
[2019-02-08] MEDS: ENOXAPARIN 40 MG/0.4 ML SQ SCH (01:06)
[2019-02-08] MEDS: AMPICILLIN/SULBACTAM 3 GM in SODIUM CHLORIDE 0.9% 100 ML IV SCH ×2 (03:48→10:26)
[2019-02-08] MEDS: HYDROcodone/APAP 10/325 MG TABLET PO PRN ×5 (03:50→23:32)
[2019-02-08] MEDS: ASPIRIN 325 MG TABLET EC PO SCH (06:11)
[2019-02-08 07:02] VITALS: BP 106/63
[2019-02-08] MEDS: INSULIN LISPRO 100 UNITS/ML, PEN SQ-INSULIN SCH ×3 (08:37→16:50)
[2019-02-08] MEDS: INSULIN GLARGINE 100 UNITS/ML, PEN SQ-INSULIN SCH ×2 (08:39→20:32)
[2019-02-08] MEDS: PAROXETINE 10 MG TABLET PO SCH (08:40)
[2019-02-08] MEDS: FUROSEMIDE 20 MG TABLET PO SCH (08:40)
[2019-02-08] MEDS: GABAPENTIN 400 MG CAPSULE PO SCH ×3 (08:40→20:31)
[2019-02-08] MEDS: PANTOPROZOLE 40MG TABLET PO SCH (08:40)
[2019-02-08] MEDS: MULTIVITAMINS WITH IRON TABLET PO SCH (08:40)
[2019-02-08] MEDS: POTASSIUM CHLORIDE 20 MEQ TAB.ER.PRT PO SCH (08:41)
[2019-02-08] MEDS: LISINOPRIL 10 MG TABLET PO SCH (08:41)
[2019-02-08] MEDS: SODIUM CHLORIDE FLUSH 10ML SYR IVF SCH ×2 (08:42→20:33)
[2019-02-08] MEDS: SENNA/DOCUSATE TABLET PO SCH (08:47)
[2019-02-08] MEDS: DOCUSATE 100 MG CAPSULE PO SCH ×2 (08:47→20:33)
[2019-02-08] MEDS: VANCOMYCIN 1,800 MG in SODIUM CHLORIDE 0.9% 250 ML IV SCH (11:59)
[2019-02-08 12:46] VITALS: BP 108/64
[2019-02-08 20:34] VITALS: BP 98/60
[2019-02-09 01:50] VITALS: BP 99/60
[2019-02-09] MEDS: ENOXAPARIN 40 MG/0.4 ML SQ SCH (02:00)
[2019-02-09] MEDS: OxyconTIN ER 10 MG TAB.ER PO SCH ×2 (02:00→11:37)
[2019-02-09] MEDS: VANCOMYCIN 2,200 MG in SODIUM CHLORIDE 0.9% 500 ML IV SCH ×2 (02:01→21:05)
[2019-02-09] MEDS: ASPIRIN 325 MG TABLET EC PO SCH (05:51)
[2019-02-09] MEDS: HYDROcodone/APAP 10/325 MG TABLET PO PRN ×4 (05:54→21:05)
[2019-02-09] MEDS: LISINOPRIL 5 MG TABLET PO SCH (08:08)
[2019-02-09] MEDS: GABAPENTIN 400 MG CAPSULE PO SCH ×3 (08:08→21:04)
[2019-02-09] MEDS: SENNA/DOCUSATE TABLET PO SCH (08:08)
[2019-02-09] MEDS: MULTIVITAMINS WITH IRON TABLET PO SCH (08:08)
[2019-02-09] MEDS: DOCUSATE 100 MG CAPSULE PO SCH ×2 (08:09→21:00)
[2019-02-09] MEDS: POTASSIUM CHLORIDE 20 MEQ TAB.ER.PRT PO SCH (08:09)
[2019-02-09] MEDS: FUROSEMIDE 20 MG TABLET PO SCH (08:09)
[2019-02-09] MEDS: PANTOPROZOLE 40MG TABLET PO SCH (08:09)
[2019-02-09] MEDS: PAROXETINE 10 MG TABLET PO SCH (08:09)
[2019-02-09] MEDS: INSULIN GLARGINE 100 UNITS/ML, PEN SQ-INSULIN SCH ×2 (08:11→21:04)
[2019-02-09] MEDS: INSULIN LISPRO 100 UNITS/ML, PEN SQ-INSULIN SCH ×3 (08:11→16:59)
[2019-02-09 08:15] VITALS: BP 96/57
[2019-02-09] MEDS: SODIUM CHLORIDE FLUSH 10ML SYR IVF SCH ×2 (09:00→21:00)
[2019-02-09 14:00] VITALS: BP 103/56
[2019-02-09 19:36] VITALS: BP 129/69
[2019-02-10 00:15] VITALS: BP 97/59
[2019-02-10] MEDS: HYDROcodone/APAP 10/325 MG TABLET PO PRN ×6 (01:04→23:04)
[2019-02-10] MEDS: OxyconTIN ER 10 MG TAB.ER PO SCH ×2 (01:04→12:03)
[2019-02-10] MEDS: ENOXAPARIN 40 MG/0.4 ML SQ SCH (01:05)
[2019-02-10] MEDS: ASPIRIN 325 MG TABLET EC PO SCH (05:05)
[2019-02-10 05:34] LABS: BASOPHILS # (AUTO) 0.11 x10^3/uL (0-0.1); BASOPHILS % (AUTO) 2 % (0-1); EOSINOPHILS # (AUTO) 0.52 x10^3/uL (0-0.4); EOSINOPHILS % (AUTO) 7 % (1-7); LYMPHOCYTES # (AUTO) 2.26 x10^3/uL (1-3.4); LYMPHOCYTES % (AUTO) 32 % (22-44); MD NO; MEAN CORPUSCULAR HEMOGLOBIN 25.5 pg (27.5-34.5); MEAN CORPUSCULAR HGB CONC 31.9 g/dL (33.2-36.2); MEAN CORPUSCULAR VOLUME 80.2 fL (81-97); MEAN PLATELET VOLUME 6.7 fL (7.4-10.4); MONOCYTES # (AUTO) 0.76 x10^3/uL (0.2-0.8); MONOCYTES % (AUTO) 11 % (2-9); NEUTROPHILS # (AUTO) 3.44 x10^3/uL (1.8-6.8); NEUTROPHILS % (AUTO) 49 % (42-75); PLATELET COUNT 537 x10^3/uL (130-400); RED BLOOD COUNT 3.77 x10^6/uL (4.38-5.82); RED CELL DISTRIBUTION WIDTH 18.2 % (9.4-14.8)
[2019-02-10 05:42] LABS: HCT (SEDRATE) 30.2 % (39.2-51.8)
[2019-02-10 05:48] LABS: ALBUMIN 2.7 g/dL (3.4-5.0); ANION GAP 5 mmol/L (5-15); CALCIUM 9.1 mg/dL (8.5-10.1); CHLORIDE 98 mmol/L (98-107)
[2019-02-10 05:58] LABS: CREATININE 0.65 mg/dL (0.7-1.3)
[2019-02-10 05:59] LABS: ALANINE AMINOTRANSFERASE 21 U/L (12-78); ALKALINE PHOSPHATASE 173 U/L (45-117); BILIRUBIN,TOTAL 0.3 mg/dL (0.2-1.0); TOTAL PROTEIN 8.6 g/dL (6.4-8.2)
[2019-02-10] MEDS: INSULIN LISPRO 100 UNITS/ML, PEN SQ-INSULIN SCH ×4 (09:00→17:11)
[2019-02-10] MEDS: SENNA/DOCUSATE TABLET PO SCH (09:00)
[2019-02-10] MEDS: DOCUSATE 100 MG CAPSULE PO SCH ×2 (09:00→21:15)
[2019-02-10] MEDS: SODIUM CHLORIDE FLUSH 10ML SYR IVF SCH ×2 (09:00→21:16)
[2019-02-10] MEDS: GABAPENTIN 400 MG CAPSULE PO SCH ×3 (09:46→21:15)
[2019-02-10] MEDS: INSULIN GLARGINE 100 UNITS/ML, PEN SQ-INSULIN SCH ×2 (09:46→21:16)
[2019-02-10] MEDS: POTASSIUM CHLORIDE 20 MEQ TAB.ER.PRT PO SCH (09:46)
[2019-02-10] MEDS: PAROXETINE 10 MG TABLET PO SCH (09:46)
[2019-02-10] MEDS: LISINOPRIL 5 MG TABLET PO SCH (09:46)
[2019-02-10] MEDS: FUROSEMIDE 20 MG TABLET PO SCH (09:47)
[2019-02-10] MEDS: PANTOPROZOLE 40MG TABLET PO SCH (09:47)
[2019-02-10] MEDS: MULTIVITAMINS WITH IRON TABLET PO SCH (09:47)
[2019-02-10] MEDS ORDERED: INSULIN LISPRO 100 UNITS/ML, PEN SQ-INSULIN SCH (11:00)
[2019-02-10] MEDS: SIMETHICONE 80 MG CHEW TAB PO PRN (13:28)
[2019-02-10 15:33] VITALS: BP 106/64
[2019-02-10] MEDS: VANCOMYCIN 2,200 MG in SODIUM CHLORIDE 0.9% 500 ML IV SCH (17:11)
[2019-02-10 19:55] VITALS: BP 109/64
[2019-02-10] MEDS: ACETAMINOPHEN 325 MG TABLET PO PRN (21:15)
[2019-02-11 00:54] VITALS: BP 101/61
[2019-02-11] MEDS: ENOXAPARIN 40 MG/0.4 ML SQ SCH (01:05)
[2019-02-11] MEDS: OxyconTIN ER 10 MG TAB.ER PO SCH ×2 (01:05→14:09)
[2019-02-11] MEDS: ASPIRIN 325 MG TABLET EC PO SCH (05:03)
[2019-02-11] MEDS: HYDROcodone/APAP 10/325 MG TABLET PO PRN ×4 (05:08→19:18)
[2019-02-11 08:26] VITALS: BP 107/64
[2019-02-11] MEDS: INSULIN GLARGINE 100 UNITS/ML, PEN SQ-INSULIN SCH ×2 (09:16→21:05)
[2019-02-11] MEDS: POTASSIUM CHLORIDE 20 MEQ TAB.ER.PRT PO SCH (09:19)
[2019-02-11] MEDS: PAROXETINE 10 MG TABLET PO SCH (09:19)
[2019-02-11] MEDS: MULTIVITAMINS WITH IRON TABLET PO SCH (09:19)
[2019-02-11] MEDS: GABAPENTIN 400 MG CAPSULE PO SCH ×3 (09:23→21:05)
[2019-02-11] MEDS: SENNA/DOCUSATE TABLET PO SCH (09:23)
[2019-02-11] MEDS: LISINOPRIL 5 MG TABLET PO SCH (09:24)
[2019-02-11] MEDS: PANTOPROZOLE 40MG TABLET PO SCH (09:24)
[2019-02-11] MEDS: DOCUSATE 100 MG CAPSULE PO SCH ×2 (09:24→21:00)
[2019-02-11] MEDS: FUROSEMIDE 20 MG TABLET PO SCH (09:24)
[2019-02-11] MEDS: VANCOMYCIN 2,200 MG in SODIUM CHLORIDE 0.9% 500 ML IV SCH (09:25)
[2019-02-11] MEDS: SODIUM CHLORIDE FLUSH 10ML SYR IVF SCH ×2 (09:30→21:06)
[2019-02-11] MEDS: INSULIN LISPRO 100 UNITS/ML, PEN SQ-INSULIN SCH ×2 (12:07→16:57)
[2019-02-11 15:28] VITALS: BP 112/66
[2019-02-11 19:26] VITALS: BP 117/45
[2019-02-12] MEDS: HYDROcodone/APAP 10/325 MG TABLET PO PRN ×4 (01:04→15:58)
[2019-02-12] MEDS: ENOXAPARIN 40 MG/0.4 ML SQ SCH (01:04)
[2019-02-12] MEDS: OxyconTIN ER 10 MG TAB.ER PO SCH ×2 (01:04→13:08)
[2019-02-12 01:23] VITALS: BP 110/53
[2019-02-12] MEDS: VANCOMYCIN 2,200 MG in SODIUM CHLORIDE 0.9% 500 ML IV SCH (02:32)
[2019-02-12] MEDS: ASPIRIN 325 MG TABLET EC PO SCH (05:35)
[2019-02-12 07:29] VITALS: BP 109/63
[2019-02-12] MEDS: DOCUSATE 100 MG CAPSULE PO SCH (07:53)
[2019-02-12] MEDS: POTASSIUM CHLORIDE 20 MEQ TAB.ER.PRT PO SCH (08:05)
[2019-02-12] MEDS: FUROSEMIDE 20 MG TABLET PO SCH (08:05)
[2019-02-12] MEDS: PANTOPROZOLE 40MG TABLET PO SCH (08:05)
[2019-02-12] MEDS: INSULIN LISPRO 100 UNITS/ML, PEN SQ-INSULIN SCH ×3 (08:05→16:00)
[2019-02-12] MEDS: LISINOPRIL 5 MG TABLET PO SCH (08:06)
[2019-02-12] MEDS: GABAPENTIN 400 MG CAPSULE PO SCH ×2 (08:06→15:58)
[2019-02-12] MEDS: PAROXETINE 10 MG TABLET PO SCH (08:06)
[2019-02-12] MEDS: MULTIVITAMINS WITH IRON TABLET PO SCH (08:06)
[2019-02-12] MEDS: INSULIN GLARGINE 100 UNITS/ML, PEN SQ-INSULIN SCH (08:08)
[2019-02-12] MEDS: SODIUM CHLORIDE FLUSH 10ML SYR IVF SCH (08:10)
[2019-02-12] MEDS: SENNA/DOCUSATE TABLET PO SCH (09:00)
[2019-02-12] MEDS ORDERED: INSU100I11 SQ-INSULIN (11:34)
[2019-02-12] MEDS ORDERED: LISI5TAB7 PO (11:34)
[2019-02-12] MEDS ORDERED: MULT1TAB81 PO (11:34)
[2019-02-12] MEDS ORDERED: INSU100I13 SQ-INSULIN ×2 (11:34)
[2019-02-12] MEDS ORDERED: POTA20TA6 PO (11:34)
[2019-02-12 14:45] VITALS: BP 121/66
[2019-02-19] MEDS ORDERED: INSU100I34 SQ (12:21)
== END 2019-02-12 16:23 | disposition home or self-care (01) | DRG 463 ==
LOC: 3NE 22:39
PROVIDERS: ADMIT Family Medicine; ATTEND Family Medicine
PROC: 0JBR0ZZ Excision of Left Foot Subcutaneous Tissue and Fascia, Open Approach (ICD-10-PCS; 2019-01-21)
PROC: 0HBRXZZ Excision of Toe Nail, External Approach (ICD-10-PCS; 2019-01-21)
PROC: 0HBRXZZ Excision of Toe Nail, External Approach (ICD-10-PCS; 2019-01-21)
PROC: 0HBRXZZ Excision of Toe Nail, External Approach (ICD-10-PCS; 2019-01-21)
PROC: 0HBRXZZ Excision of Toe Nail, External Approach (ICD-10-PCS; 2019-01-21)
PROC: 0HBRXZZ Excision of Toe Nail, External Approach (ICD-10-PCS; 2019-01-21)
PROC: 0HBRXZZ Excision of Toe Nail, External Approach (ICD-10-PCS; 2019-01-21)
PROC: 0HBRXZZ Excision of Toe Nail, External Approach (ICD-10-PCS; 2019-01-21)
PROC: 0HBRXZZ Excision of Toe Nail, External Approach (ICD-10-PCS; 2019-01-21)
PROC: 0HBRXZZ Excision of Toe Nail, External Approach (ICD-10-PCS; 2019-01-21)
PROC: 0HBRXZZ Excision of Toe Nail, External Approach (ICD-10-PCS; 2019-01-21)
PROC: 0HBRXZZ Excision of Toe Nail, External Approach (ICD-10-PCS; principal; 2019-01-21 15:00)
PROC: 0T9B30Z Drainage of Bladder with Drainage Device, Percutaneous Approach (ICD-10-PCS; 2019-01-22)
PROC: BT101ZZ Fluoroscopy of Bladder using Low Osmolar Contrast (ICD-10-PCS; 2019-01-22)
PROC: BT40ZZZ Ultrasonography of Bladder (ICD-10-PCS; 2019-01-22)
DX: M65.872 Other synovitis and tenosynovitis, left ankle and foot (principal); E43 Unspecified severe protein-calorie malnutrition; L03.116 Cellulitis of left lower limb; E87.1 Hypo-osmolality and hyponatremia; G82.20 Paraplegia, unspecified; F11.20 Opioid dependence, uncomplicated; J90 Pleural effusion, not elsewhere classified; B37.49 Other urogenital candidiasis; J81.1 Chronic pulmonary edema; L89.159 Pressure ulcer of sacral region, unspecified stage; E11.621 Type 2 diabetes mellitus with foot ulcer; L89.629 Pressure ulcer of left heel, unspecified stage; L89.329 Pressure ulcer of left buttock, unspecified stage; L89.319 Pressure ulcer of right buttock, unspecified stage; D50.9 Iron deficiency anemia, unspecified; E11.40 Type 2 diabetes mellitus with diabetic neuropathy, unspecified; E11.65 Type 2 diabetes mellitus with hyperglycemia; E11.69 Type 2 diabetes mellitus with other specified complication; F17.200 Nicotine dependence, unspecified, uncomplicated; I10 Essential (primary) hypertension; L89.619 Pressure ulcer of right heel, unspecified stage; M40.209 Unspecified kyphosis, site unspecified; D63.8 Anemia in other chronic diseases classified elsewhere; I87.8 Other specified disorders of veins; N31.9 Neuromuscular dysfunction of bladder, unspecified; N47.2 Paraphimosis; Z79.4 Long term (current) use of insulin; Z86.73 Personal history of transient ischemic attack (TIA), and cerebral infarction without residual deficits; Z99.3 Dependence on wheelchair; Z68.34 Body mass index [BMI] 34.0-34.9, adult; F32.9 Major depressive disorder, single episode, unspecified; Q55.69 Other congenital malformation of penis; B95.62 Methicillin resistant Staphylococcus aureus infection as the cause of diseases classified elsewhere
CPT/HCPCS: 36415; 71045; 74177; 75989; 80048; 80053; 80202; 81001; 82728; 82962; 83036; 83540; 83550; 83735; 84100; 84466; 85025; 85651; 86140; 87070; 87075; 87077; 87086; 87106; 87147; 87186; 87205; 93306; 97162; C1725; G0378; J0295; J1650; J1940; J2248; J2250; J3010; J3370; Q9967; C1769; J1815; J2310; J7030; J7040; J7050